=== PATIENT | male | born 2000 | race Caucasian/White ===

== ENCOUNTER 2023-07-30 16:52 | Emergency (ER) | payer OTHER ==
[2023-07-30 17:49] VITALS: RESP 18; TEMP 98.4
--- NOTE | 2023-07-30 17:59 | ERPHSYRPT ---
- History of Present Illness Time Seen by Provider: 07/30/23 17:46 Source: patient Exam Limitations: no limitations Patient Subjective Stated Complaint: Finger injury- Right index Triage Nursing Assessment: Patient ambulated back to ED and transferred to bed per self. Patient A+O x 3. Patient's skin pink, warm and dry. Patient complains of right hand, index pain 5/10. Patient states he was at work at [employer] when a 50 pound rock fell approx on patient from 3 foot. Patient states his right hand, index finger crushed his right hand inbetween the rock and metal tray. Right hand index finger noted to be slightly swollen and deformed at 2nd k nuckle. Physician History: About 2 hours 45 minutes ago pt was at work([employer]) and a 50# rock fell from a 3 foot height hitting pt's right forearm and crushing his right index finger against a metal tray; denies numbness and prior injury to right index finger; tetanus status unknown. Allergies/Adverse Reactions: No Known Drug Allergies Allergy (Unverified 07/30/23 17:30) Home Medications: Levothyroxine Sodium 25 Mcg [Synthroid 25 Mcg] 1 tab PO DAILY 07/30/23 [History] Hx Influenza Vaccination/Date Given: No Hx Pneumococcal Vaccination/Date Given: No Immunizations Up to Date: Yes Travel Risk - International Travel Have you traveled outside of the country in past 3 weeks: No - Emerging Infectious Disease Are you exhibiting symptoms associated with any current EIDs: No - Review of Systems Musculoskeletal: Injury (abrasion/contusion to right forearm and right index fin padmini today) - Past Medical History Pertinent Past Medical History: No Neurological History: No Pertinent History ENT History: No Pertinent History Cardiac History: Other Respiratory History: No Pertinent History Endocrine Medical History: Hypothyroidism Musculoskeletal History: No Pertinent History GI Medical History: No Pertinent History History: No Pertinent History Psycho-Social History: No Pertinent History Male Reproductive Disorders: No Pertinent History Other Medical History: Bradycardia 3-4 years - Past Surgical History Past Surgical History: Yes Neuro Surgical History: No Pertinent History Cardiac: No Pertinent History Respiratory: No Pertinent History Gastrointestinal: No Pertinent History Genitourinary: No Pertinent History Musculoskeletal: No Pertinent History Male Surgical History: No Pertinent History - Social History Smoking Status: Never smoker Exposure to second hand smoke: No Drug Use: none - Nursing Vital Signs Nursing Vital Signs: Initial Vital Signs Temperature 98.4 F 07/30/23 17:33 Pulse Rate 48 L 07/30/23 17:33 Respiratory Rate 18 07/30/23 17:33 Blood Pressure 125/63 07/30/23 17:33 O2 Sat by Pulse Oximetry 98 07/30/23 17:33 Pain Scale Pain Intensity 5 - Physical Exam General Appearance: alert Shoulder Exam: normal ROM Elbow/Forearm Exam: normal ROM (superficial abrasions to dorsal aspect of proximal and distal right forearm) Wrist Exam: normal ROM Hand Exam: limited ROM (right index finger has limited flexion with mild tenderness and good sensation & capillary refill; ~ 2mm superficial abrasion to dorsal aspect of middle phalanx.) Neuro/Tendon Exam: normal sensation Mental Status Exam: alert, cooperative SpO2 Interpretation: normal SpO2: 98 O2 Delivery: Room Air - Radiology Exams Right Forearm X-ray Interpretation: Discussed w/ radiologist, No Fracture Right Hand X-ray Interpretation: Discussed w/ radiologist, No Fracture Ordered Tests: Active Orders 24 hr Category Date Time Status FOREARM Stat Exams 07/30/23 18:03 Taken HAND (MINIMUM 3 VIEWS) Stat Exams 07/30/23 18:02 Taken Medication Summary Discontinued Medications Generic Name Dose Route Start Last Admin Trade Name Freq PRN Reason Stop Dose Admin Ibuprofen 600 mg 07/30/23 18:02 07/30/23 18:09 Ibuprofen 600 Mg Tablet PO 07/30/23 18:03 600 mg STAT ONE Administration Ibuprofen Confirm 07/30/23 18:07 Ibuprofen 600 Mg Tablet Administered 07/30/23 18:08 Dose 600 mg .ROUTE .STK-MED ONE - Progress Progress: unchanged Counseled pt/family regarding: diagnosis, need for follow-up, rad results Medical Desision Making - Diagnostic Testing Diagnostic test were ordered, analyzed, and reviewed by me: Yes Radiological Interpretation: Discussed w/ radiologist - Departure Departure Disposition: Home Clinical Impression: abrasions to right forearm, abrasion/contusion of right index finger Condition: Stable Critical Care Time: No Referrals: JANNET PINTO [employer] [Primary Care Provider] - Follow up/PCP as directed Instructions: Contusion (DC), Skin Abrasions (DC) Additional Instructions: Follow up with private doctor tomorrow. Apply bacitracin & bandage to abrasions. Prescriptions: Ibuprofen 600 mg PO Q6H PRN PRN #20 tablet PRN Reason: Pain
[2023-07-30] MEDS ORDERED: MOTRIN 600 MG ONE (18:07)
[2023-07-30] MEDS: MOTRIN 600 MG PO ONE (18:09)
[2023-07-30 21:04] VITALS: O2SAT 98
[2023-07-30] MEDS ORDERED: BACIGUENT PACKET ONE (22:20)
[2023-07-30] MEDS: BACIGUENT PACKET TP ONE (22:36)
[2023-07-30 22:49] VITALS: BP 115/66; PULSE 48
--- NOTE | 2023-07-31 08:41 | XRAY ---
Indication: 2nd finger injury. Comparison: None 3 view right hand obtained. No bony, articular, or soft tissue abnormalities.
--- NOTE | 2023-07-31 08:41 | XRAY ---
Indication: Pain following injury. Comparison: None 2 view right forearm demonstrates mild posterior soft tissue swelling. No other bony, articular, or soft tissue abnormalities.
== END 2023-07-30 22:38 | disposition home or self-care (01) ==
LOC: ED 16:52
DX: S60.410A Abrasion of right index finger, initial encounter (principal); S50.811A Abrasion of right forearm, initial encounter; W20.8XXA Other cause of strike by thrown, projected or falling object, initial encounter; Y92.64 Mine or pit as the place of occurrence of the external cause; Y99.0 Civilian activity done for income or pay; Z79.899 Other long term (current) drug therapy
CPT/HCPCS: 73090; 73130; 99283; A9270-GY